=== PATIENT | female | born 1980 | race Caucasian/White ===

== ENCOUNTER 2017-12-10 16:13 | Emergency (ER) | payer BC ==
[2017-12-10 16:36] LABS: ABS Basophils 0.1 10^3/ul (0-0.2); ABS Eosinophils 0.1 10^3/ul (0-0.6); ABS Lymphocytes 1.9 10^3/ul (1.0-4.8); ABS Monocytes 0.4 10^3/ul (0-0.8); ABS Neutrophils 4.6 10^3/ul (1.5-7.7); ABS Nucleated RBC 0 10^3/ul; Eosinophil % 1.5 % (0-6); Hematocrit 38 % (35-47); Hemoglobin 13.7 g/dl (12.0-16.0); Lymphocyte % 27.3 % (25-47); Mean Corpuscular HGB Conc 36 g/dl (31-36); Mean Corpuscular Hemoglobin 32 pg (27-31); Mean Corpuscular Volume 90 fL (80-97); Mean Platelet Volume 7.1 um3 (7.4-10.4); Nucleated Red Blood Cells % 0.1; Platelet Count 213 10^3/ul (150-450); Red Blood Count 4.24 10^6/ul (4.00-5.40); Red Cell Distribution Width 13 % (10.5-15); White Blood Count 7.1 10^3/ul (3.5-10.8)
[2017-12-10 16:54] LABS: EGFR Non-African American 85.2 (>60)
--- OUTSIDE RECORDS SUMMARY | 2017-12-10 16:56 | XMS REPORT ---
:1980 External Reference #:[id number] Author Organization [employer] Address [address] [facility] [place] [address] Phone [phone] Care Team Providers Name Role Phone Sarmad Dixon NP Primary Care Physician Unavailable Payers Type Date Identification Numbers Payment Provider Subscriber Commercial Effective: Policy Number: BS Andre Castaneda 2014 [id number] PayID: [id number] [address] [address] [place] [address] Medigap Part B Expires: 2016 Policy Number: BS Andre Castaneda [id number] PayID: [id number] [address] [address] [place] [address] Workers Compensation Policy Number: [id number] [employer] Bhumi Castaneda PayID: [id number] [address] [place] [address] Problems Description No Information Family History Date Family Member(s) Problem(s) Comments General Diabetes General Heart Disease General Hypertension General Cancer General Rheumatoid Arthritis Father Hypertension Father Hypercholesterolemia Mother Hypertension Mother Hypercholesterolemia Mother cardiac stents Mother Diabetes Social History Type Date Description Comments Marital Status Lives With x 2 children Occupation Currently Working [employer] ETOH Use Occasionally consumes alcohol 0-5 a month Smoking Patient has never smoked Recreational Drug Use Denies Drug Use Daily Caffeine Consumes on average 2 cups of regular coffee per day Exercise Type/Frequency Exercises sporadically General Hx Text Do you follow a special diet? Low carb Do you have problems with snoring, day time fatigue? Occasional day time fatigue Allergies, Adverse Reactions, Alerts Date Description Reaction Status Severity Comments 06/04/2016 Amoxicillin Urticaria active Mild to Moderate Medications Medication Date Status Form Strength Qnty SIG Indications Ordering Provider Tizanidine HCL / Active Capsules 4mg 1 tab every Unknown 0000 eight hours as needed Ventolin HFA / Active Aerosol 108(90Bas 2 puffs by Unknown 0000 e) mouth every mcg/Act four hours as needed Vitamin B12 / Active 500 mcg Unknown 0000 daily prn Zinc Gluconate / Active Tablets 50mg as needed Unknown 0000 Flonase / Active Suspension 50mcg/Act spray 1 Unknown Allergy Relief 0000 spray in each nostril once daily as needed Elderberry / Active Liquid 2 tsp daily Unknown Syrup 0000 Fexofenadine / Active 180mg 1 by mouth Unknown HCL 0000 daily prn Multi Vitamin / Active Tablets 1 by mouth Unknown Daily 0000 every day Flexeril 10/25/ Hx Tablets 10mg 40tab 1 po tid Dirk 2011 - Willie, 06/04/ M.D. 2017 Naprosyn 06/25/ Hx Tablets 500mg 60tab 1 po bid prn Dirk 2011 - neck, upper Willie, 06/04/ back pain M.D. 2016 (with food preferred) [place] 06/25/ Hx Tablets 5-325mg 25tab 1 po q6h prn Dirk 2011 - pain neck Willie, 06/04/ and upper M.D. 2017 back 180 MG / Hx Capsules 10mg 1 by mouth Unknown 0000 - every day 2017 Vitamins 00/ Hx Unknown 0000 - 2017 Hair, Skin And / Hx Tablets 1 by mouth Unknown Nails Vitamin 0000 - every day 2017 Afrin 12 Hour / Hx Solution 0.05% follow Unknown 0000 - instruction 03/21/ on the box 2018 Sudafed 12 / Hx Unknown Hour 0000 - 2017 Vitamin D High / Hx Capsules 1000Unit 1 by mouth Unknown Potency 0000 - every day 2017 Doxycycline / Hx Capsules 100mg 1 by mouth Unknown Monohydrate 0000 - twice a day 2017 Vital Signs Date Vital Result Comment 12/10/2017 Height 66.25 inches 5'6.25" Weight 168.00 lb with shoes Heart Rate 73 /min BP Systolic 108 mmHg lue/reg cuff BP Diastolic 64 mmHg lue/reg cuff BMI (Body Mass Index) 26.9 kg/m2 Ejection Fraction 55-60% Echo. 07/15/2017 07/22/2017 Height 66.25 inches 5'6.25" Weight 163.38 lb with sandals Heart Rate 80 /min BP Systolic Sitting 118 mmHg Rue reg cuff BP Diastolic Sitting 74 mmHg Rue reg cuff BP Systolic Standing 114 mmHg Rue reg cuff BP Diastolic Standing 72 mmHg Rue reg cuff Respiratory Rate 15 /min BMI (Body Mass Index) 26.2 kg/m2 Ejection Fraction 55-60% 07/15/2017-echo 03/31/2017 Height 66.25 inches 5'6.25" Weight 167.00 lb Heart Rate 72 /min BP Systolic 108 mmHg Rue reg cuff BP Diastolic 82 mmHg Rue reg cuff BP Systolic Sitting 104 mmHg Lue reg cuff BP Diastolic Sitting 84 mmHg Lue reg cuff BP Systolic Standing 98 mmHg Lue reg cuff BP Diastolic Standing 82 mmHg Lue reg cuff Respiratory Rate 16 /min BMI (Body Mass Index) 26.7 kg/m2 06/04/2016 Height 67 inches 5'7" Weight 168.00 lb Heart Rate 72 /min BP Systolic 118 mmHg BP Diastolic 82 mmHg Respiratory Rate 15 /min BMI (Body Mass Index) 26.3 kg/m2 Results Description No Information Procedures Date CPT Code Description Status 12/10/2017 08628 EKG Tracing & Interpretation Completed 07/15/2017 85600 ECHO Transthorasic Realtime 2D W Doppler & Color Flow Completed Hosp 05/12/2017 88079 ECHO Stress Test Incl Perf Contiuous ekg Monitoring Completed W/Phys Superv 05/03/2017 73506 Cardiac Event Monitor Completed 04/13/2017 80691 Event Monitor/Phys Review/Interp. Completed 03/31/2017 68879 EKG Tracing & Interpretation Completed 11/23/2012 73708 Rad Exam; Wrist, Comp, Min 3 Views Completed 06/26/2011 45884 Rad Exam; Thoracic Spine Completed Encounters Type Date Location Provider CPT E/M Dx Office Visit 07/22/2017 [facility] Laurent Morfin, [address] I36.1 2:40p [facility] Office Visit 03/31/2017 [facility] [place] [address] R94.31 3:00p [facility] R06.02 R00.2 R07.89 Office Visit 06/04/2016 10[facility] Merlin Brooke, [address]449 M79.672 [facility] Office Visit 11/23/2012 8:45a [facility] Anne Marie 15859 719.43 [facility] Casey M.D. Office Visit 06/26/2011 10:30a [facility] Jorden Tapia M.D. 94229 847.0 [facility] [place] Plan of Care Future Appointment(s):12/16/2017 11:00 am - Traveling ECHO 2 at [facility]12/10/2017 - Latanya August NPI36.1 Nonrheumatic tricuspid ( valve) insufficiencyNew Orders:SlakeqobtlwrixN54.02 Shortness of breathNew Labs: D Dimer Quantitative
--- NOTE | 2017-12-10 17:11 | RAD ---
INDICATION: Chest pain COMPARISON: None. TECHNIQUE: Single AP view of the chest was obtained. FINDINGS: The heart and mediastinum exhibit normal size and contour. The lungs are grossly clear. There is no evidence of a large pleural effusion. Visualized bones are normal for the patient's age. IMPRESSION: No radiographic evidence for acute cardiopulmonary abnormality on this single AP view chest x-ray.
[2017-12-10] MEDS ORDERED: Albuterol/Ipratropium NEB.SOL* Albuterol 2.5 MG/Ipratropium 0.5 MG 3 ML INH ONE (18:41)
--- NOTE | 2017-12-10 20:10 | ED ---
HPI Chest Pain - HPI Summary HPI Summary: Patient is a 37 y/o F w/ c/o SOB and sharp left sided chest pain upon inhalation onsetting yesterday. She was seen by her ager operator, Dr. Morfin, today who wanted her to come to ED to rule out blood clot. Patient notes a similar bout of Sx last week as well. She states she has been experiencing some "calf strain" but denies edema and redness. She notes similar episodes of SOB but reports chest pain is a new Sx. Cough, fever, cold Sx, and rhinorrhea are denied. She has not gotten flu shot yet. PMHx of tricuspid insufficiency. FMHx of mother with "widowmaker" [place] and stent at around age 50, WPW. PMHx of WPW is denied. Outpatient D-dimer was drawn which resulted in ED as less than 200 is noted as well. She notes having a cardiac stress test done this past June 2017 which was normal. Hx of ovarian cyst, x3. Hx of palpitations as well, none noted presently. Patient has not had chest pain since she has been in the room but notes that chest pain usually lasts for a second with inhalation. On triage, pain is denied, deep breaths are noted to produce chest pain, nothing is noted to alleviate Sx. Home medications and allergies are reviewed. In room, pulse is 63, o2 99, BP 111/78. Allergies/Adverse Reactions: Allergies Allergy/AdvReac Type Severity Reaction Status Date / Time amoxicillin Allergy Rash Verified 12/10/17 17:51 bee venom protein (honey bee) Allergy Dizziness Verified 12/10/17 17:51 Home Medications: Home Medications Multivit,Calc,Mins/Folic Acid 1 tab PO DAILY 12/10/17 [History Confirmed ] - History of Current Complaint Chief Complaint: EDChestPainROMI Time Seen by Provider: 12/10/17 18:07 Hx Obtained From: Patient Onset/Duration: Started Days Ago - onset yesterday, Started Weeks Ago - another bout of present Sx a week ago, Still Present Timing: Constant Initial Severity: Moderate Current Severity: None Pain Intensity: 0 Pain Scale Used: 0-10 Numeric - 0/10 Chest Pain Location: Left Anterior Chest Pain Radiates: No Character: Sharp/Stabbing Aggravating Factor(s): Deep Breaths Alleviating Factor(s): Nothing Associated Signs and Symptoms: Positive: Chest Pain, Shortness of Breath, Other : - POSITIVE: "calf strain"NEGATIVE: cold Sx, rhinorrhea,calf redness or swelling. Negative: Fever, Cough, Edema - Allergy/Home Medications Allergies/Adverse Reactions: Allergies Allergy/AdvReac Type Severity Reaction Status Date / Time amoxicillin Allergy Rash Verified 12/10/17 17:51 bee venom protein (honey bee) Allergy Dizziness Verified 12/10/17 17:51 Home Medications: Home Medications Multivit,Calc,Mins/Folic Acid 1 tab PO DAILY 12/10/17 [History Confirmed ] PMH/Surg Hx/FS Hx/Imm Hx Previously Healthy: No Endocrine/Hematology History: Denies: Hx Diabetes Cardiovascular History: Reports: Hx Valvular Heart Disease - tricuspid insufficiency Denies: Hx Hypertension, Hx Pacemaker/ICD Respiratory History: Denies: Hx Asthma, Hx Chronic Obstructive Pulmonary Disease (COPD) History: Reports: Other Problems/Disorders - ovarian cysts Sensory History: Denies: Hx Hearing Aid Psychiatric History: Reports: Hx Anxiety, Hx Depression - PP depression Denies: Hx Panic Disorder - Surgical History Surgery Procedure, Year, and Place: 3 C-SECTIONS - Immunization History Immunizations Up to Date: Yes Infectious Disease History: No Infectious Disease History: Denies: Traveled Outside the [place] in Last 30 Days - Family History Known Family History: Positive: Cardiac Disease - mother with "widowmaker" [place] and stent at age 50, and WPW syndrome - Social History Lives: With Family Alcohol Use: Occasionally Substance Use Type: Reports: None Smoking Status (MU): Never Smoked Tobacco Review of Systems Positive: Other - NEGATIVE: cold Sx . Negative: Fever Negative: Nasal Discharge Positive: Chest Pain - left sided upon inhalation . Negative: Palpitations Positive: Shortness Of Breath. Negative: Cough Gastrointestinal: Negative Positive: Other - "calf strain" . Negative: Edema Positive: Other - NEGATIVE: erythema Neurological: Negative Psychological: Normal All Other Systems Reviewed And Are Negative: Yes Physical Exam - Summary Physical Exam Summary: Appearance: Well-appearing, no pain distress, well-nourished, pleuritic left chest pain with inspiration Skin: Warm, color reflects adequate perfusion, dry Head: Normal Head/Face inspection, atraumatic Eyes: Conjunctiva clear ENT: Normal inspection Neck: Supple, no nodes, no JVD Respiratory: Lungs clear, normal breath sounds, no respiratory distress Cardio: RRR, 1/6 decrescendo murmur at left heart border, pulses normal, brisk capillary refill Abdomen: Soft, nontender Bowel sounds: Present Musculoskeletal: Strength Intact/ROM intact, no calf tenderness, no edema. Psychological: Normal Neuro: Alert, muscle tone normal, no focal deficit Triage Information Reviewed: Yes Vital Signs On Initial Exam: Initial Vitals Temp Pulse Resp BP Pulse Ox 97.5 F 77 18 139/87 100 12/10/17 16:16 12/10/17 16:16 12/10/17 16:16 12/10/17 16:16 12/10/17 16:16 Vital Signs Reviewed: Yes Diagnostics - Vital Signs Vital Signs Temp Pulse Resp BP Pulse Ox 12/10/17 18:41 76 100 12/10/17 18:40 100 12/10/17 18:18 63 111/78 93 12/10/17 18:16 98 F 91 16 138/79 100 12/10/17 18:00 63 99 12/10/17 17:50 69 114/82 97 12/10/17 17:45 65 100 12/10/17 16:16 97.5 F 77 18 139/87 100 - Laboratory Lab Results: Lab Results 12/10/17 12/10/17 12/10/17 Range/Units 16:29 16:29 16:29 WBC 7.1 (3.5-10.8) 10^3/ul RBC 4.24 (4.00-5.40) 10^6/ul Hgb 13.7 (12.0-16.0) g/dl Hct 38 (35-47) % MCV 90 (80-97) fL MCH 32 H (27-31) pg MCHC 36 (31-36) g/dl RDW 13 (10.5-15) % Plt Count 213 (150-450) 10^3/ul MPV 7.1 L (7.4-10.4) um3 Neut % (Auto) 64.4 (38-83) % Lymph % (Auto) 27.3 (25-47) % Smith % (Auto) 6.0 (0-7) % Eos % (Auto) 1.5 (0-6) % Baso % (Auto) 0.8 (0-2) % Absolute Neuts (auto) 4.6 (1.5-7.7) 10^3/ul Absolute Lymphs (auto) 1.9 (1.0-4.8) 10^3/ul Absolute Monos (auto) 0.4 (0-0.8) 10^3/ul Absolute Eos (auto) 0.1 (0-0.6) 10^3/ul Absolute Basos (auto) 0.1 (0-0.2) 10^3/ul Absolute Nucleated RBC 0 10^3/ul Nucleated RBC % 0.1 Sodium 137 (135-145) mmol/L Potassium 3.5 (3.5-5.0) mmol/L Chloride 104 (101-111) mmol/L Carbon Dioxide 28 (22-32) mmol/L Anion Gap 5 (2-11) mmol/L BUN 13 (6-24) mg/dL Creatinine 0.76 (0.51-0.95) mg/dL Est GFR ( Amer) 103.1 (>60) Est GFR (Non-Af Amer) 85.2 (>60) BUN/Creatinine Ratio 17.1 (8-20) Glucose 107 H (70-100) mg/dL Lactic Acid 0.4 L (0.5-2.0) mmol/L Calcium 9.3 (8.6-10.3) mg/dL Total Bilirubin 0.40 (0.2-1.0) mg/dL AST 14 (13-39) U/L ALT 12 (7-52) U/L Alkaline Phosphatase 43 (34-104) U/L Troponin I 0.00 (<0.04) ng/mL Total Protein 7.1 (6.4-8.9) g/dL Albumin 4.6 (3.2-5.2) g/dL Globulin 2.5 (2-4) g/dL Albumin/Globulin Ratio 1.8 (1-3) 12/10/17 Range/Units 19:16 WBC (3.5-10.8) 10^3/ul RBC (4.00-5.40) 10^6/ul Hgb (12.0-16.0) g/dl Hct (35-47) % MCV (80-97) fL MCH (27-31) pg MCHC (31-36) g/dl RDW (10.5-15) % Plt Count (150-450) 10^3/ul MPV (7.4-10.4) um3 Neut % (Auto) (38-83) % Lymph % (Auto) (25-47) % Smith % (Auto) (0-7) % Eos % (Auto) (0-6) % Baso % (Auto) (0-2) % Absolute Neuts (auto) (1.5-7.7) 10^3/ul Absolute Lymphs (auto) (1.0-4.8) 10^3/ul Absolute Monos (auto) (0-0.8) 10^3/ul Absolute Eos (auto) (0-0.6) 10^3/ul Absolute Basos (auto) (0-0.2) 10^3/ul Absolute Nucleated RBC 10^3/ul Nucleated RBC % Sodium (135-145) mmol/L Potassium (3.5-5.0) mmol/L Chloride (101-111) mmol/L Carbon Dioxide (22-32) mmol/L Anion Gap (2-11) mmol/L BUN (6-24) mg/dL Creatinine (0.51-0.95) mg/dL Est GFR ( Amer) (>60) Est GFR (Non-Af Amer) (>60) BUN/Creatinine Ratio (8-20) Glucose (70-100) mg/dL Lactic Acid (0.5-2.0) mmol/L Calcium (8.6-10.3) mg/dL Total Bilirubin (0.2-1.0) mg/dL AST (13-39) U/L ALT (7-52) U/L Alkaline Phosphatase (34-104) U/L Troponin I 0.00 (<0.04) ng/mL Total Protein (6.4-8.9) g/dL Albumin (3.2-5.2) g/dL Globulin (2-4) g/dL Albumin/Globulin Ratio (1-3) Result Diagrams: 12/10/17 16:29 12/10/17 16:29 Lab Statement: Any lab studies that have been ordered have been reviewed, and results considered in the medical decision making process. - Radiology CXR Xray Interpretation: No Acute Changes Radiology Interpretation Completed By: Radiologist - CXR showed no radiographic evidence for acute cardiopulmonary abnormality on this portable CXR. This report was reviewed by ed physician. - EKG 1619 Cardiac Rate: NL - rate of [address] Segment: Non-Specific Ectopy: None EKG Interpretation: nl AVIVCT, nl QTc, nl axis, non-specific ST, inverted T- wave in lead III EKG Comparison: No Significant Change - nl AVIVCT, nl QTc, nl axis, non- specific ST, inverted T-wave in lead III, no acute changes, no changes from EKG on 05/24/2009. Re-Evaluation - Re-Evaluation First Eval Re-Evaluation Time: 19:57 Comment: Breathing treatment is reported to have not provided any change. Labs discussed as well as follow up plan. The patient will be discharged. She is agreeable with this. Chest Pain Course/Dx - Course Course Of Treatment: Patient is a 37 y/o F w/ c/o SOB and sharp left sided chest pain upon inhalation onsetting yesterday. She was seen by her ager operator today who wanted her to come to ED to rule out blood clot. Patient notes a similar bout of Sx last week as well. She states she has been experiencing some "calf strain" but denies edema and redness. She notes similar episodes of SOB but reports chest pain is a new Sx. Cough, fever, cold Sx, and rhinorrhea are denied. She has not gotten flu shot yet. PMHx of tricuspid insufficiency. FMHx of mother with widowmaker at around 50, WPW. PMHx of WPW is denied. Outpatient D-dimer was drawn which resulted in ED as less than 200 is noted as well. She notes having a cardiac stress test done this past June which was normal. Hx of palpitations as well, none noted presently. Patient has not had chest pain since she has been in the room but notes that chest pain usually lasts for a second with inhalation. In room, pulse is 63, o2 99, BP 111/78. Physical exam showed 1/6 decrescendo murmur, pleuritic left chest pain with inspiration, no pain distress. During ED course, patient received albuterol nebulizer treatment. Labs showed two trops as negative, lactic acid 0.4. 1619 EKG showed sinus rhythm with rate of 72 BPM, nl AVIVCT, nl QTc, nl axis, non- specific ST, inverted T-wave in lead III, no acute changes. No changes from EKG on 05/24/2009. CXR showed no radiographic evidence for acute cardiopulmonary abnormality on this portable CXR. Labs and tests were discussed with patient. She will be discharged to home and follow up with her ager operator and PCP. Patient is agreeable with this plan. Dx of pleurisy. - Chest Pain Differential Diagnosis/HQI/PQRI: Acute IL, ACS, Angina, Chest Wall, Pulmonary Embolism, Other: - pleurisy - Diagnoses Provider Diagnoses: Pleurisy, Tricuspid valve insufficiency, Chest pain - Provider Notifications Discussed Care Of Patient With: Kwaku Brown Time Discussed With Above Provider: 18:08 Instructed by Provider To: Other - 180 - Dr. Brown had been notified of patient's arrival and communicated medications and Hx of patient which include flonase, ventolin inhaler, vitamins, tricuspid insufficiency, ECHO on 06/2017. Discharge - Sign-Out/Discharge Documenting (check all that apply): Patient Departure - discharge - Discharge Plan Condition: Stable Disposition: HOME Patient Education Materials: Pleurisy (ED) Referrals: Sarmad Dixon NP [Primary Care Provider] - 2 Days Reese Morfin DO [Medical Doctor] - 2 Days Additional Instructions: Return to the emergency department for new or worsening symptoms. Follow up with Dr. Morfin and your primary care provider Sarmad Dixon in the next two days. We have given you a copy of your labs and tests that were done today, we did not find a serious cause for your chest pain with deep breaths today. You are recommended to use your inhaler 4 times a day for next 48 hours and taken ibuprofen as needed for pain. - Billing Disposition and Condition Condition: STABLE Disposition: Home - Attestation Statements Document Initiated by [place]: Yes Documenting Nahidibjohn: Josh Pierson Provider For Whom Bismark is Documenting (Include Credential): Padmini Castrejon MD Scribe Attestation: Josh Rivas , scribed for Padmini Castrejon MD on 12/13/17 at 2056. Scribe Documentation Reviewed: Yes Provider Attestation: The documentation as recorded by the Josh rainey accurately reflects the service I personally performed and the decisions made by me, Padmini Castrejon MD
[2017-12-10 20:39] VITALS: BP 109/75
== END 2017-12-10 20:38 | disposition home or self-care (01) ==
LOC: ED 16:13
DX: R09.1 Pleurisy (principal); I07.1 Rheumatic tricuspid insufficiency; R07.89 Other chest pain; Z88.0 Allergy status to penicillin; Z91.030 Bee allergy status; Z82.49 Family history of ischemic heart disease and other diseases of the circulatory system
CPT/HCPCS: 36415; 71045; 80053; 83605; 84484; 85025; 93005; 99282; A9270-GY